=== PATIENT | male | born 1965 | race Caucasian/White ===

== ENCOUNTER 2018-05-19 16:56 | Inpatient (IN) | payer BC ==
[~2018-05-19] VITALS: Ht 182.9 cm; Wt 73.0 kg
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
[2018-05-19] MEDS ORDERED: NS(*) 0.9% 1000 ML BAG 1,000 ML IV ONE (17:09)
[2018-05-19] MEDS ORDERED: DIAZEPAM 5 MG TAB PO ONE (17:10)
[2018-05-19 17:32] LABS: PLATELET COUNT, AUTOMATED 86 K/uL (150-450)
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
[2018-05-19 20:03] VITALS: BP 147/100
[2018-05-19] MEDS ORDERED: THIAMINE HCL(*) 200 MG/2 ML IN 100 MG, FOLIC ACID(*) 50 MG/10 ML INJ 1 MG, MULTIVITAMIN... IV ONE (20:55)
[2018-05-19] MEDS ORDERED: INFLUENZA VIRUS VAC 0.5ML SYR IM ONLY ONE (20:55)
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
[2018-05-19] MEDS: DIAZEPAM 10 MG TAB PO PRN ×3 (21:11→23:25)
[2018-05-19 22:02] VITALS: BP 94/60
[2018-05-19 22:05] VITALS: BP 94/60
[2018-05-19 23:26] VITALS: BP 113/72
[2018-05-20] VITALS (8 sets, daily range): BP systolic 113–134; BP diastolic 51–89; Ht 182.9 cm; Wt 73.0 kg
[2018-05-20 05:52] LABS: PLATELET COUNT, AUTOMATED 79 K/uL (150-450)
[2018-05-20 06:05] LABS: INR 1.12
[2018-05-20] MEDS: NS(*) 0.9% 1000 ML BAG 1,000 ML IV PRN ×2 (07:06→19:28)
[2018-05-20] MEDS: FOLIC ACID 1 MG TAB PO SCH (08:50)
[2018-05-20] MEDS: THIAMINE HCL 200 MG/2 ML INJ IVP SCH (08:51)
[2018-05-20] MEDS ORDERED: THIAMINE HCL 200 MG/2 ML INJ IVP SCH (09:00)
[2018-05-20] MEDS: KCL (*) 20 MEQ/100 ML PREMIX 100 ML IV SCH ×2 (10:45→13:28)
--- NOTE | 2018-05-20 15:24 | Hospitalist Progress Note ---
Subjective Progress Notes Subjective 53M admitted for alcohol withdrawal seizure. KILLIAN overnight, continues to need benzoes for withdrawal. Physical Exam Vital Signs Date Time Temp Pulse Resp B/P (MAP) Pulse Ox O2 Delivery O2 Flow Rate FiO2 05/20/18 14:40 98.3 96 20 128/75 (92) 93 Room Air 05/20/18 06:59 1.0 Intake and Output 05/20/18 07:00 Intake Total 200 ml Balance 200 ml Intake Oral 200 ml # Voids 2 General Appearance: Alert, Awake, No Acute Distress Neuro: No Gross deficits Cardiovascular: Normal Rhythm & Peripheral Pulses Respiratory: No Respiratory Distress GI: Soft and Non-Tender Extremities: Soft and Non Tender, Warm, Pulses, Perfused Integumentary: Skin Intact without Lesion / Mass Result Diagram: 05/20/1853505/20/18535 Assessment and Plan Problems: (1) Alcohol withdrawal seizure Status: Acute Assessment & Plan: Seizure precautions, CIWA protocol with Valium as needed, thiamine replacement, and watch closely. He professes a desire to remain abstinent. He has references for 2 rehab groups in [place]. (2) Alcoholism Status: Chronic Exam Sepsis Risk: No Definite Risk Problem Qualifiers (1) Alcohol withdrawal seizure: Complication of substance-induced condition: uncomplicated Qualified Codes: F10.230 - Alcohol dependence with withdrawal, uncomplicated IRVIN CAMILO DO May 20, 2018 15:24
[2018-05-20] MEDS ORDERED: NICOTINE INH SYSTEM 10 MG/INH INH PRN (19:10)
[2018-05-20] MEDS ORDERED: NICOTINE CARTRIDGE 1 EA PO PRN (19:10)
[2018-05-20] MEDS: DIAZEPAM 10 MG TAB PO PRN ×2 (19:26→22:27)
[2018-05-21 02:35] VITALS: BP 156/103
[2018-05-21] MEDS: DIAZEPAM 10 MG TAB PO PRN (02:39)
[2018-05-21 07:01] VITALS: BP 123/83
[2018-05-21] MEDS: POTASSIUM CHL 20 MEQ TABCR PO SCH (10:00)
[2018-05-21] MEDS: THIAMINE HCL 200 MG/2 ML INJ IVP SCH (10:00)
[2018-05-21] MEDS: FOLIC ACID 1 MG TAB PO SCH (10:00)
--- NOTE | 2018-05-21 10:55 | Hospitalist Progress Note ---
Subjective Progress Notes Subjective He was admitted after having alcohol withdraw seizure. He reports some improvement in withdraw symptoms. He had no acute events overnight. Patient Complains of: Cardiovascular: No: Chest Pain Respiratory: No: Shortness of Breath Physical Exam Vital Signs Date Time Temp Pulse Resp B/P (MAP) Pulse Ox O2 Delivery O2 Flow Rate FiO2 05/21/18 07:01 98.3 92 16 123/83 (96) 92 Room Air 05/20/18 06:59 1.0 l Intake and Output 05/21/18 06:59 Intake Total 2889 ml Balance 2889 ml Intake Oral 1600 ml IV Total 1289 ml # Voids 2 # Bowel Movements 2 General Appearance: Alert, Awake, No Acute Distress, Afebrile Neuro: No Gross deficits Cardiovascular: Regular Rate and Rhythm Respiratory: No Respiratory Distress, Clear to Auscultation GI: Soft and Non-Tender Psych: Alert & Oriented X3, Appropriate Mood & Affect Result Diagram: 05/20/18 0536 05/21/18 0529 Assessment and Plan Problems: (1) Alcohol withdrawal seizure Status: Acute Assessment & Plan: Seizure precautions, CIWA protocol with Valium as needed, thiamine replacement, and watch closely. He professes a desire to remain abstinent. He has references for 2 rehab groups in [place]. (2) Alcoholism Status: Chronic Exam Sepsis Risk: No Definite Risk Problem Qualifiers (1) Alcohol withdrawal seizure: Complication of substance-induced condition: uncomplicated Qualified Codes: F10.230 - Alcohol dependence with withdrawal, uncomplicated KERVIN KNOXP May 21, 2018 10:55
[2018-05-21 12:16] VITALS: BP 150/105
[2018-05-21 20:32] VITALS: BP 143/95
[2018-05-21 23:44] VITALS: BP 153/95
[2018-05-22 03:38] VITALS: BP 126/90
[2018-05-22 07:41] VITALS: BP 159/109
[2018-05-22 08:53] VITALS: BP_SYST 159; BP_SYST 173; BP_DIAS 106; BP_DIAS 110
[2018-05-22] MEDS: DIAZEPAM 10 MG TAB PO PRN (09:02)
[2018-05-22] MEDS: POTASSIUM CHL 20 MEQ TABCR PO SCH (09:03)
[2018-05-22] MEDS: FOLIC ACID 1 MG TAB PO SCH (09:03)
[2018-05-22] MEDS: THIAMINE HCL 200 MG/2 ML INJ IVP SCH (09:03)
[2018-05-22 10:00] VITALS: BP 127/85
[2018-05-22] MEDS ORDERED: THIA100T20 PO (10:14)
[2018-05-22] MEDS ORDERED: FOLI-68 PO (10:14)
--- NOTE | 2018-05-22 10:19 | Hospitalist Depart ---
Discharge Summary Reason for Hosp/Final Diag: (1) Alcohol withdrawal seizure Status: Acute Hospital Course & Plan: He was admitted with seizure precautions, CIWA protocol with Valium as needed, thiamine replacement. He professes a desire to remain abstinent. He has references for 2 rehab groups in [place]. He will be discharged to his daughter. She plans to drive him to [place] for rehab. (2) Alcoholism Status: Chronic Departure Latest Vital Signs Vital Signs 05/21/18 05/22/18 05/22/18 12:16 10:00 10:07 Temp 98.0 Pulse 99 Resp 18 B/P (MAP) 127/85 (99) Pulse Ox 95 O2 Delivery Room Air O2 Flow Rate Weight (Pounds): 161 Result Diagram: 05/20/18 0536 05/21/18 0529 Condition: Improved Discharge: Home, Self Care Discharge Instructions Home Meds Active Scripts Thiamine Hcl (VITAMIN B-1) 100 Mg Tablet, 100 MG PO QDAY, #30 TAB Prov:KERVIN KNOX 05/22/18 Folic Acid (FOLIC ACID) 1 Mg Tablet, 1 MG PO QDAY, #30 TAB Prov:KERVIN KNOX 05/22/18 Diet: Regular Activity: As Tolerated Special Instructions: Take Folic acid and thiamine daily. Encourage abstinence from alcohol. Venous Thromboembolism Antithrombotics Is Pt On Any Antithrombotics?: No Problem Qualifiers (1) Alcohol withdrawal seizure: Complication of substance-induced condition: uncomplicated Qualified Codes: F10.230 - Alcohol dependence with withdrawal, uncomplicated KERVIN KNOX May 22, 2018 10:19
[2018-05-22 10:52] VITALS: BP 145/95
[2018-05-22 13:14] VITALS: BP 142/93
[2018-05-23] MEDS ORDERED: THIAMINE HCL 100 MG TAB PO SCH (09:00)
== END 2018-05-22 14:30 | disposition home or self-care (01) | DRG 897 ==
LOC: ER 16:58 → EDBD 16:58 → MED 19:30 → UNDOADMIN 19:30
PROVIDERS: ADMIT Internal Medicine; ATTEND Internal Medicine
DX: F10.230 Alcohol dependence with withdrawal, uncomplicated (principal); R56.9 Unspecified convulsions; F17.210 Nicotine dependence, cigarettes, uncomplicated; Y90.0 Blood alcohol level of less than 20 mg/100 ml
CPT/HCPCS: 36415; 70450; 80320; 82040; 82247; 82310; 82374; 82435; 82565; 82947; 83735; 84075; 84132; 84155; 84295; 84450; 84460; 84520; 85025; 85610; 96360; 96361; 99284; J3411; J3480; J7030

== ENCOUNTER → 2018-05-19 | Outpatient (CLI) | payer BC ==
[~2018-05-19] MED LIST: FOLI-68 PO; THIA100T20 PO
[2018-05-20 10:36] VITALS: BMI 21.8
== END ==
LOC: AMB 16:09
PROVIDERS: ATTEND Nurse Practitioner
DX: R56.9 Unspecified convulsions (principal); F10.239 Alcohol dependence with withdrawal, unspecified; R25.1 Tremor, unspecified; R00.0 Tachycardia, unspecified; V47.5XXA Car driver injured in collision with fixed or stationary object in traffic accident, initial encounter
CPT/HCPCS: A0425; A0427